=== PATIENT | female | born 1980 | race Caucasian/White ===

== ENCOUNTER → 2018-08-12 | Outpatient (CLI) | payer BC ==
[~2018-08-12] MED LIST: CEFU500T50 PO
--- NOTE | 2018-08-12 10:07 | RADIOLOGY IMAGING REPORT ---
FACILITY: [facility] PATIENT NAME: Maday Menon : 1980 MR: [id number] V: [id number] EXAM DATE: ORDERING PHYSICIAN: TC ROMANO TECHNOLOGIST: Location: [facility] [place] Patient: Maday Menon : 1980 Visit/Account:[id number] Date of Sevice: 08/12/2018 CHEST PA LAT INDICATION: Cough COMPARISON: None available FINDINGS: Heart size within normal limits. Patchy infiltrate is noted within the right lower lobe. The remainder of the lungs are clear. There is no pneumothorax or pleural effusion. IMPRESSION: 1. Right lower lobe pneumonia Results were discussed with TC ROMANO at 08/12/2018 10:02 AM. Report Dictated By: Pablo Haynes at 08/12/2018 9:54 AM Report E-Signed By: Pablo Haynes at 08/12/2018 10:02 AM WSN:[id number]
== END ==
LOC: RAD 09:34
PROVIDERS: ATTEND Family Medicine
DX: J18.1 Lobar pneumonia, unspecified organism (principal)
CPT/HCPCS: 71046